=== PATIENT | female | born 1960 | race Native Hawaiian/Other Pacific Islander ===

== ENCOUNTER 2016-12-08 18:59 | Emergency (ER) | payer OTHER ==
[~2016-12-08] VITALS: Ht 157.5 cm; Wt 59.0 kg
[2016-12-08 20:21] LABS: PLATELET COUNT 272 K/uL (152-353)
[2016-12-08 20:37] LABS: POTASSIUM 3.9 mmol/L (3.6-5.2)
[2016-12-08 21:55] VITALS: BP 192/95; TEMP 98.6
== END 2016-12-08 22:03 | disposition home or self-care (01) ==
LOC: ED 18:59
DX: N39.0 Urinary tract infection, site not specified (principal); F19.10 Other psychoactive substance abuse, uncomplicated
CPT/HCPCS: 36415; 80053; 80307; 81000; 85027; 87077; 87086; 87088; 87186; 96372; 99283; G0479; J0696

== ENCOUNTER 2018-05-30 19:24 | Outpatient (CLI) | payer OTHER | END 2018-05-30 19:33 | disposition short-term general hospital (02) | LOC: AMB 19:24 | DX: R51 Headache (principal); S01.81XA Laceration without foreign body of other part of head, initial encounter; Y08.89XA Assault by other specified means, initial encounter; Y92.89 Other specified places as the place of occurrence of the external cause | CPT/HCPCS: A0425; A0427 ==

== ENCOUNTER 2018-05-30 19:45 | Emergency (ER) | payer OTHER ==
[~2018-05-30] VITALS: Ht 157.5 cm; Wt 54.4 kg
[2018-05-30 22:25] VITALS: BP 165/102; TEMP 98.5
== END 2018-05-30 22:27 | disposition home or self-care (01) ==
LOC: ED 19:45
PROC: 0HQ1XZZ Repair Face Skin, External Approach (ICD-10-PCS; principal; 2018-05-30)
DX: S09.90XA Unspecified injury of head, initial encounter (principal); S01.81XA Laceration without foreign body of other part of head, initial encounter; I10 Essential (primary) hypertension; Y00.XXXA Assault by blunt object, initial encounter; Y92.098 Other place in other non-institutional residence as the place of occurrence of the external cause
CPT/HCPCS: 90471; 90715; 99283; J1885; J7040

== ENCOUNTER 2020-01-04 17:20 | Observation (INO) | payer OTHER ==
[2020-01-04] VITALS (9 sets, daily range): BP systolic 141–248; BP diastolic 71–121; TEMP 97.9–98.4; Ht 157.5 cm; Wt 61.7 kg
[~2020-01-04] VITALS: Ht 157.5 cm; Wt 61.7 kg
[2020-01-04 18:22] LABS: PLATELET COUNT 271 K/uL (152-353)
[2020-01-04 18:47] LABS: POTASSIUM 3.8 mmol/L (3.6-5.2); SODIUM 135 mmol/L (136-145)
[2020-01-05] VITALS: BP 164/82; TEMP 97.9
[2020-01-05 04:00] VITALS: BP 140/75; TEMP 98.7
[2020-01-05 08:00] VITALS: BP 170/75; TEMP 98.1
[2020-01-05 12:00] VITALS: BP 166/83; TEMP 97.8
[2020-01-05 16:00] VITALS: BP 153/76; TEMP 97.8
[2020-01-05 20:00] VITALS: BP 152/75; TEMP 98.1
[2020-01-06] VITALS: BP 142/79; TEMP 97.8
[2020-01-06 04:00] VITALS: BP 162/77; TEMP 97.5
[2020-01-06 05:08] LABS: POTASSIUM 3.8 mmol/L (3.6-5.2)
[2020-01-06 05:14] LABS: PLATELET COUNT 235 K/uL (152-353)
[2020-01-06 08:00] VITALS: BP 162/77; TEMP 97.7
[2020-01-06] MEDS ORDERED: AMLODIPINE BESYLATE PO (10:03)
[2020-01-06] MEDS ORDERED: LISI20TA11 PO (10:04)
[2020-01-06] MEDS ORDERED: HYDR25TA60 PO (10:04)
== END 2020-01-06 12:00 | disposition home or self-care (01) ==
LOC: ED 17:20 → MED/SURG 20:16
PROVIDERS: Student in an Organized Health Care Education/Training Program; ADMIT Internal Medicine Endocrinology, Diabetes & Metabolism
DX: I16.0 Hypertensive urgency (principal); R07.89 Other chest pain; M25.511 Pain in right shoulder; R53.1 Weakness; Z91.19 Patient's noncompliance with other medical treatment and regimen; Z72.0 Tobacco use
CPT/HCPCS: 36415; 80048; 81000; 82550; 83735; 83880; 84443; 84484; 85027; 85610; 85730; 93005; 94760; 96374; 96375; 96376; 99220; 99284; G0378; J1650; J1885; J2270; J3490; Q9963

== ENCOUNTER 2022-12-13 11:08 | Observation (INO) | payer OTHER ==
[2022-12-13] VITALS (14 sets, daily range): BP systolic 138–300; BP diastolic 63–138; TEMP 98–98.9; Ht 157.5 cm; Wt 64.5 kg
[~2022-12-13] VITALS: Ht 157.5 cm; Wt 64.5 kg
[~2022-12-13 11:08] MED LIST: AMLODIPINE BESYLATE PO; HYDR25TA60 PO; LISI20TA11 PO
[2022-12-13 12:34] LABS: PLATELET COUNT 294 K/uL (152-353)
[2022-12-13 12:36] LABS: POTASSIUM 3.2 mmol/L (3.6-5.2)
[2022-12-13] MEDS ORDERED: VITAMIN B-121000 MC2 PO (16:16)
[2022-12-14] VITALS (10 sets, daily range): BP systolic 122–192; BP diastolic 63–100; TEMP 98–98.3
[2022-12-14 05:21] LABS: PLATELET COUNT 255 K/uL (152-353)
[2022-12-14 05:53] LABS: POTASSIUM 3.7 mmol/L (3.6-5.2)
[2022-12-14] MEDS ORDERED: LISI10TA11 PO (12:33)
[2022-12-14] MEDS ORDERED: METO-837 PO (12:34)
== END 2022-12-14 13:50 | disposition home or self-care (01) ==
LOC: ED 11:08 → MED/SURG 13:55
PROVIDERS: Emergency Medicine; ADMIT Internal Medicine; ATTEND Internal Medicine
DX: I10 Essential (primary) hypertension (principal); Z72.0 Tobacco use; F41.8 Other specified anxiety disorders; E87.6 Hypokalemia
CPT/HCPCS: 36415; 80053; 80307; 81002; 84484; 85027; 85610; 85730; 87635; 93005; 96361; 96365; 96372; 96374; 96375; 96376; 99220; 99285; G0378; J0360; J1650; J3490; U0003

== ENCOUNTER 2022-12-28 09:20 | Outpatient (CLI) | payer OTHER ==
[~2022-12-28 09:20] MED LIST changes: +LISI10TA11 PO; +METO-837 PO; +VITAMIN B-121000 MC2 PO
== END 2022-12-28 19:23 | disposition home or self-care (01) ==
LOC: US 09:20
PROVIDERS: ATTEND Nurse Practitioner Acute Care
DX: R09.89 Other specified symptoms and signs involving the circulatory and respiratory systems (principal)

== ENCOUNTER 2023-02-15 22:18 | Emergency (ER) | payer OTHER ==
[~2023-02-15] VITALS: Ht 157.5 cm; Wt 52.2 kg
[2023-02-15 22:20] VITALS: TEMP 97.8
[2023-02-16 06:30] VITALS: BP 165/90
== END 2023-02-16 17:17 | disposition home or self-care (01) ==
LOC: ED 22:18
DX: F15.10 Other stimulant abuse, uncomplicated (principal)
CPT/HCPCS: 80307; 99283

== ENCOUNTER 2023-02-28 07:56 | Outpatient (CLI) | payer OTHER ==
[2023-02-28 08:29] LABS: PLATELET COUNT 236 K/uL (152-353)
[2023-02-28 08:55] LABS: POTASSIUM 3.9 mmol/L (3.6-5.2)
== END 2023-02-28 20:40 | disposition home or self-care (01) ==
LOC: LABW 07:56
PROVIDERS: ATTEND Nurse Practitioner Acute Care
DX: I10 Essential (primary) hypertension (principal); Z79.899 Other long term (current) drug therapy
CPT/HCPCS: 36415; 80053; 80061; 83036; 84443; 85027

== ENCOUNTER 2023-03-20 08:08 | Outpatient (CLI) | payer OTHER | END 2023-03-20 19:00 | disposition home or self-care (01) | LOC: US 08:08 | PROVIDERS: ATTEND Nurse Practitioner Acute Care | DX: I10 Essential (primary) hypertension (principal); R06.09 Other forms of dyspnea; R74.01 Elevation of levels of liver transaminase levels ==

== ENCOUNTER 2023-12-31 10:22 | Outpatient (CLI) | payer OTHER | END 2023-12-31 19:07 | disposition home or self-care (01) | LOC: US 10:22 | PROVIDERS: ATTEND Surgery Vascular Surgery | DX: Z01.818 Encounter for other preprocedural examination (principal) ==